=== PATIENT | female | born 1995 | race Caucasian/White ===

== ENCOUNTER 2020-11-11 09:10 | Emergency (ER) | payer OTHER ==
[~2020-11-11 09:10] MED LIST: BACTRIM DS TAB1 EACH PO; BACTROBAN OINT22 GM EXT; IBUPROFEN600 MG PO; LODINE CAP 300300 MG PO; NORCO 10-325 T1 EACH PO; NORCO 5-325 TA1 EACH PO; ULTRAM50 MG PO; ZOFRAN ODT 4 MG4 MG PO
[2020-11-11 10:22] LABS: RED BLOOD COUNT 4.22 M/UL (4.00-5.10); WHITE BLOOD COUNT 6.3 K/UL (4.5-11.0)
[2020-11-11 10:43] LABS: BUN/CREATININE RATIO 17 (0-10)
== END 2020-11-11 12:45 | disposition home or self-care (01) ==
LOC: ER1 09:10
PROVIDERS: Physician Assistant
DX: O20.0 Threatened abortion (principal); O99.331 Smoking (tobacco) complicating pregnancy, first trimester; F17.290 Nicotine dependence, other tobacco product, uncomplicated; Z88.0 Allergy status to penicillin; Z3A.01 Less than 8 weeks gestation of pregnancy
CPT/HCPCS: 80053; 81001; 84702; 85025; 86850; 86900; 86901; 99284; J2790

== ENCOUNTER → 2020-11-13 | Outpatient (CLI) | payer OTHER | LOC: LAB 12:10 | DX: O20.0 Threatened abortion (principal) | CPT/HCPCS: 36415; 84702 ==

== ENCOUNTER 2020-11-16 22:49 | Emergency (ER) | payer OTHER ==
[2020-11-17 01:17] LABS: HEMOGLOBIN 13.7 gm/dl (12.3-15.3); RED BLOOD COUNT 4.42 M/UL (4.00-5.10); WHITE BLOOD COUNT 10.6 K/UL (4.5-11.0)
[2020-11-17 01:58] LABS: BUN/CREATININE RATIO 16 (0-10)
== END 2020-11-17 02:42 | disposition home or self-care (01) ==
LOC: ER1 22:49
PROVIDERS: Family Medicine
DX: O20.9 Hemorrhage in early pregnancy, unspecified (principal); Z88.0 Allergy status to penicillin; Z87.891 Personal history of nicotine dependence; Z3A.01 Less than 8 weeks gestation of pregnancy
CPT/HCPCS: 80053; 84702; 85025; 99284

== ENCOUNTER 2021-08-22 23:14 | Emergency (ER) | payer OTHER ==
[2021-08-23 00:37] LABS: HEMOGLOBIN 11.6 gm/dl (12.3-15.3); RED BLOOD COUNT 3.74 M/UL (4.00-5.10); WHITE BLOOD COUNT 6.8 K/UL (4.5-11.0)
[2021-08-23 00:49] LABS: BUN/CREATININE RATIO 12 (0-10)
[2021-08-23] MEDS ORDERED: BENTYL 20MG TAB20 MG PO (02:53)
[2021-08-23] MEDS ORDERED: REGLAN10 MG PO (02:53)
== END 2021-08-23 02:56 | disposition home or self-care (01) ==
LOC: ER1 23:14
PROVIDERS: Physician Assistant
DX: U07.1 COVID-19 (principal); O98.512 Other viral diseases complicating pregnancy, second trimester; Z88.0 Allergy status to penicillin; O21.9 Vomiting of pregnancy, unspecified; O99.332 Smoking (tobacco) complicating pregnancy, second trimester; F17.290 Nicotine dependence, other tobacco product, uncomplicated; Z3A.17 17 weeks gestation of pregnancy
CPT/HCPCS: 0240U; 71045; 80053; 81001; 83605; 83735; 83880; 84100; 84439; 84443; 85025; 85610; 85652; 85730; 86140; 87081; 87086; 87880; 99284

== ENCOUNTER 2021-10-18 18:26 | Outpatient (CLI) | payer OTHER ==
[~2021-10-18 18:26] MED LIST changes: +BENTYL 20MG TAB20 MG PO; +REGLAN10 MG PO
== END 2021-10-18 21:20 | disposition home or self-care (01) ==
LOC: GENOP 18:26
DX: O99.891 Other specified diseases and conditions complicating pregnancy (principal); R10.9 Unspecified abdominal pain; Z87.448 Personal history of other diseases of urinary system; Z88.0 Allergy status to penicillin; Z3A.25 25 weeks gestation of pregnancy
CPT/HCPCS: 81001; G0463

== ENCOUNTER 2021-11-30 16:01 | Outpatient (CLI) | payer OTHER | END 2021-11-30 17:25 | disposition home or self-care (01) | LOC: GENOP 16:01 | DX: O99.891 Other specified diseases and conditions complicating pregnancy (principal); N89.8 Other specified noninflammatory disorders of vagina; Z87.891 Personal history of nicotine dependence; Z88.0 Allergy status to penicillin; Z3A.31 31 weeks gestation of pregnancy | CPT/HCPCS: 81001; 82962; 83518; G0463 ==

== ENCOUNTER 2022-01-02 15:45 | Outpatient (CLI) | payer OTHER | END 2022-01-02 19:45 | disposition home or self-care (01) | LOC: GENOP 15:45 | DX: O26.893 Other specified pregnancy related conditions, third trimester (principal); L29.9 Pruritus, unspecified; O99.891 Other specified diseases and conditions complicating pregnancy; R10.9 Unspecified abdominal pain; Z88.0 Allergy status to penicillin; Z91.030 Bee allergy status; Z3A.36 36 weeks gestation of pregnancy | CPT/HCPCS: 80076; 81001; 82962; 96360; J7120; Q0177 ==